=== PATIENT | female | born 1975 | race Caucasian/White ===

== ENCOUNTER 2020-07-27 15:48 | Emergency (ER) | payer SELFPAY ==
[~2020-07-27] VITALS: Ht 142.2 cm; Wt 54.4 kg
[2020-07-27 15:56] VITALS: BP 168/110
--- NOTE | 2020-07-27 15:57 | NUR ---
PT PLACED IN BED 10.
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
--- NOTE | 2020-07-27 16:29 | NUR ---
PROVIDED PT WITH URINE CUP. PT STATES SHE URINATED PRIOR TO ARRIVING AND CAN'T GO RIGHT NOW
[2020-07-27] MEDS ORDERED: BACITRACIN OINT 500 UNITS/GM PKT TP ONE (17:00)
[2020-07-27 17:26] LABS: BARBITURATE, URINE NEGATIVE ng/ml (NEG <=200); BENZODIAZEPINE, URINE NEGATIVE ng/mL (NEG <=200); CANNABINOID, URINE POSITIVE ng/mL (NEG <=50); COCAINE, URINE NEGATIVE ng/mL (NEG <=300); OPIATE, URINE NEGATIVE ng/mL (NEG <=2000); PHENCYCLIDINE SCREEN,URINE NEGATIVE ng/mL (NEG <=25)
== END 2020-07-27 17:20 | disposition home or self-care (01) ==
LOC: MED 15:48
DX: L98.499 Non-pressure chronic ulcer of skin of other sites with unspecified severity (principal); F19.90 Other psychoactive substance use, unspecified, uncomplicated; F17.210 Nicotine dependence, cigarettes, uncomplicated; F12.90 Cannabis use, unspecified, uncomplicated; Z71.6 Tobacco abuse counseling; Z20.828 Contact with and (suspected) exposure to other viral communicable diseases
CPT/HCPCS: 80305; 99283; U0003